=== PATIENT | female | born 1955 | race Caucasian/White ===

== ENCOUNTER → 2023-08-23 | Day surgery (SDC) | payer MEDICARE, OTHER ==
[~2023-08-23] MED LIST: Acetaminophen/HYDROcodone 325-5 MG Tab PO PRN; Bupivacaine 0.25% 10 ML SDV ONE; EPINEPHrine 1 MG/ML SDV ONE; HYDROmorphone 0.5 MG/0.5 ML Syringe IVPUSH PRN; Ketorolac 30 MG/ML SDV ONE; Lactated Ringers 1,000 ML IV SCH; Lactated Ringers 1,000 ML ONE; Midazolam 1 MG/ML 2 ML SDV ONE; Morphine 8 MG, EPINEPHrine 0.3 MG, Cefuroxime 750 MG, Ketorolac 30 MG, Sodium Chloride ... PRN; Ondansetron 4 MG/2 ML SDV IVPUSH PRN; Ondansetron 4 MG/2 ML SDV ONE; Phenylephrine 1% 10 MG/ML SDV ONE; Propofol 200 MG/20 ML SDV ONE; Ropivacaine 0.5% 5 MG/ML 30 ML SDV ONE; Sodium Chloride 0.9% 10 ML Syringe FLUSH PRN; Sodium Chloride 0.9% 10 ML Syringe FLUSH SCH; Tranexamic Acid 1,000 MG/10 ML Vial ONE; Triamcinolone Acetonide 40 MG/ML 1 ML SDV ONE; Vancomycin 1 GM SDV ONE; ceFAZolin 2 GM Vial ONE; dexmedeTOMIDine HCl 200 MCG/2 ML SDV ONE; fentaNYL 100 MCG/2 ML SDV IVPUSH PRN; fentaNYL 100 MCG/2 ML SDV ONE
== END | disposition home or self-care (01) ==
LOC: JD.SDS 07:30
PROVIDERS: ATTEND Orthopaedic Surgery
DX: M17.0 Bilateral primary osteoarthritis of knee (principal); Z98.890 Other specified postprocedural states; Z79.82 Long term (current) use of aspirin; Z79.899 Other long term (current) drug therapy; Z88.5 Allergy status to narcotic agent; Z91.048 Other nonmedicinal substance allergy status
CPT/HCPCS: 0055T; 20610; 27447; 64447; 73560; 97116; 97161; A9270; C1713; C1776; J0171; J0690; J0697; J1885; J2250; J2270; J2371; J2405; J2704; J2795; J3010; J3301; J3370; J3490; J7030; J7120; 01402

== ENCOUNTER 2024-10-11 06:00 | Day surgery (SDC) | payer MEDICARE, OTHER ==
[2024-10-11] MEDS: Lactated Ringers 1,000 ML IV SCH (06:15)
[2024-10-11] MEDS ORDERED: EPINEPHrine 1 MG/ML SDV ONE (06:31)
[2024-10-11] MEDS ORDERED: fentaNYL 100 MCG/2 ML SDV ONE (06:33)
[2024-10-11] MEDS ORDERED: Propofol 200 MG/20 ML SDV ONE ×4 (06:33→07:48)
[2024-10-11] MEDS ORDERED: ceFAZolin 2 GM Vial ONE (06:34)
[2024-10-11] MEDS ORDERED: dexmedeTOMIDine HCl 200 MCG/2 ML SDV ONE (06:44)
[2024-10-11] MEDS ORDERED: Ondansetron 4 MG/2 ML SDV ONE (06:44)
[2024-10-11] MEDS ORDERED: Dexamethasone 4 MG/ML 5 ML MDV ONE (06:44)
[2024-10-11] MEDS ORDERED: ePHEDrine 50 MG/ML SDV ONE (07:11)
[2024-10-11] MEDS ORDERED: Ropivacaine 0.5% 5 MG/ML 30 ML SDV ONE (07:24)
[2024-10-11] MEDS ORDERED: Lactated Ringers 1,000 ML ONE (07:54)
[2024-10-11] MEDS: Morphine 8 MG, EPINEPHrine 0.3 MG, Cefuroxime 750 MG, Ketorolac 30 MG, Sodium Chloride ... PRN (08:06)
[2024-10-11] MEDS: VANCOmycin 1 GM SDV ONE (08:11)
[2024-10-11] MEDS: Tranexamic Acid 1,000 MG/10 ML Vial ONE (08:11)
[2024-10-11] MEDS ORDERED: Ondansetron 4 MG/2 ML SDV IVPUSH PRN (08:44)
[2024-10-11] MEDS ORDERED: HYDROmorphone 0.5 MG/0.5 ML Syringe IVPUSH PRN (08:44)
[2024-10-11] MEDS ORDERED: fentaNYL 100 MCG/2 ML SDV IVPUSH PRN (08:44)
[2024-10-11] MEDS ORDERED: Sodium Chloride 0.9% 10 ML Syringe FLUSH PRN (10:13)
[2024-10-11] MEDS: Acetaminophen/HYDROcodone 325-5 MG Tab PO PRN (10:17)
[2024-10-11] MEDS ORDERED: Sodium Chloride 0.9% 10 ML Syringe FLUSH SCH (21:00)
== END 2024-10-11 12:55 | disposition home or self-care (01) ==
LOC: JD.SDS 06:00
PROVIDERS: ATTEND Orthopaedic Surgery
DX: M17.11 Unilateral primary osteoarthritis, right knee (principal)
CPT/HCPCS: 0055T; 27447; 64447; 73560; 97110; 97116; 97162; A9270; C1713; C1776; J0171; J0690; J0697; J1100; J1885; J2272; J2405; J2704; J2795; J3010; J7120; 01400; J3490